=== PATIENT | male | born 1940 | race Caucasian/White ===

== ENCOUNTER 2018-10-07 10:17 | Inpatient (IN) | payer MEDICARE, BC ==
[~2018-10-07] VITALS: Ht 185.4 cm; Wt 128.8 kg
[~2018-10-07 10:17] MED LIST: ASPIR-LOW81 MG PO; COUMADIN 77.5 MG/TAB PO; WARFARIN SODIUM1 MG; ZOCOR; [UNRECOGNIZED DRUG - REMARK]
[2018-10-07] MEDS ORDERED: LIPITOR 40MG TA40 MG PO (10:42)
[2018-10-07] MEDS ORDERED: CARTIA XT120 MG PO (10:43)
[2018-10-07] MEDS ORDERED: SYNTHROID 0.0.025 MG PO (10:43)
[2018-10-07] MEDS ORDERED: 00186-0372-20 IH (10:44)
[2018-10-07] MEDS ORDERED: PRINIVIL10 MG PO (10:44)
[2018-10-07] MEDS ORDERED: LASIX 40MG TABL40 MG PO (10:45)
[2018-10-07 10:54] LABS: BASO # 0.1 (0.0-0.2); BASO % 0.5 % (0.0-2.0); EOS # 0.1 (0.0-0.7); EOS % 0.5 % (0-4.0); GRAN # 8.3 (1.4-6.5); GRAN % 75.4 % (42.2-75.2); HEMOGLOBIN 10.5 g/dl (13.5-18.0); LYMPH # 1.6 (1.2-3.4); LYMPH % 14.4 % (20.0-51.0); MEAN CELL VOLUME 104 fl (80.0-100.0); MEAN CORPUSCULAR HEMOGLOBIN 34 pg (27.0-31.0); MEAN CORPUSCULAR HGB CONC 33 g/dl (33.0-37.0); MEAN PLATELET VOLUME 11.3 fl (7.4-10.4); MONO # 0.9 (0.1-0.6); MONO % 8.3 % (1.7-9.3); PLATELET COUNT 121 K/mm3 (130-400); RED BLOOD COUNT 3.07 M/mm3 (4.20-5.60)
[2018-10-07 11:04] LABS: ALBUMIN 3.8 gm/dL (3.5-5.0); BILIRUBIN,TOTAL 1.4 mg/dL (0.0-1.0); CALCIUM 8.5 mg/dL (8.4-10.2); CREATININE, serum 0.95 mg/dL (0.66-1.25); POTASSIUM 5.2 mmol/L (3.4-5.0); TOTAL PROTEIN 7.1 gm/dL (6.4-8.2)
[2018-10-07 11:06] LABS: REDCELL DISTRIBUTION WIDTH-CV 20.9 % (11.5-14.5)
[2018-10-07 11:21] LABS: ARTERIAL BLD GAS O2 SATURATION 97.4 % (92-100); ARTERIAL BLD GAS TCO2 CT 25.3; ARTERIAL BLOOD GAS BASE EXCESS -0.4 (-2-2); ARTERIAL BLOOD GAS HCO3 24.1 meq/L (22-26); ARTERIAL BLOOD GAS PO2 120.5 mmHg (80-100); ARTERIAL BLOOD GAS pH 7.41 (7.35-7.45)
[2018-10-07 13:09] VITALS: BP 105/54; PULSE 84; TEMP 98.1
[2018-10-07] MEDS ORDERED: JANTOVEN7.5 MG PO (13:10)
[2018-10-07 13:47] LABS: INR 3.5 (0.8-3.0); PROTHROMBIN TIME 39.7 SECONDS (9.7-12.8)
[2018-10-07 19:32] LABS: PH 5 (5-8); SQUAMOUS EPITHELIAL 0-2 /hpf; URINE APPEARANCE Clear; URINE BACTERIA None Seen /hpf; URINE BILIRUBIN Negative (NEGATIVE); URINE BLOOD Negative (NEGATIVE); URINE COLOR Yellow; URINE GLUCOSE Negative (NEGATIVE); URINE KETONE Negative (NEGATIVE); URINE LEUKOCYTE ESTERASE Negative (NEGATIVE); URINE NITRATE Negative (NEGATIVE); URINE PROTEIN(semi-quant) Negative (NEGATIVE); URINE RBC None Seen /hpf; URINE UROBILINOGEN Negative (NEGATIVE)
[2018-10-07 19:47] VITALS: BP 100/50; PULSE 124; TEMP 97.7
[2018-10-07 19:48] LABS: COLLECTION METHOD CLEAN CATCH
[2018-10-08] VITALS (19 sets, daily range): BP systolic 98–132; BP diastolic 42–74; PULSE 50–128; TEMP 97.4–97.9; O2SAT 94–100
[2018-10-08 02:21] LABS: FOLATE (FOLIC ACID) 12.2 ng/mL (7.0-31.4)
[2018-10-08 05:54] LABS: BASO % 0.2 % (0.0-2.0); GRAN # 7.5 (1.4-6.5); LYMPH # 1.3 (1.2-3.4); LYMPH % 13.2 % (20.0-51.0); MEAN CELL VOLUME 104 fl (80.0-100.0); MEAN CORPUSCULAR HGB CONC 32 g/dl (33.0-37.0); MONO # 0.7 (0.1-0.6); PLATELET COUNT 105 K/mm3 (130-400); RED BLOOD COUNT 2.76 M/mm3 (4.20-5.60); REDCELL DISTRIBUTION WIDTH-CV 20.6 % (11.5-14.5)
[2018-10-08 05:56] LABS: HEMATOCRIT 28.6 % (42.0-52.0); HEMOGLOBIN 9.2 g/dl (13.5-18.0); MEAN CORPUSCULAR HEMOGLOBIN 33 pg (27.0-31.0)
[2018-10-08 06:06] LABS: INR 2.4 (0.8-3.0); PROTHROMBIN TIME 27.2 SECONDS (9.7-12.8)
[2018-10-08 06:15] LABS: ALBUMIN 3.5 gm/dL (3.5-5.0); BILIRUBIN,TOTAL 1.3 mg/dL (0.0-1.0); CALCIUM 8.1 mg/dL (8.4-10.2); CREATININE, serum 0.68 mg/dL (0.66-1.25); POTASSIUM 4.9 mmol/L (3.4-5.0); TOTAL PROTEIN 6.8 gm/dL (6.4-8.2)
[2018-10-08 19:00] LABS: CALCIUM 8.2 mg/dL (8.4-10.2); CREATININE, serum 0.76 mg/dL (0.66-1.25); POTASSIUM 4.9 mmol/L (3.4-5.0)
[2018-10-08 19:02] LABS: ARTERIAL BLD GAS O2 SATURATION 92.9 % (92-100); ARTERIAL BLD GAS TCO2 CT 23.3; ARTERIAL BLOOD GAS HCO3 22.2 meq/L (22-26); ARTERIAL BLOOD GAS PCO2 35.5 mmHg (35-45); ARTERIAL BLOOD GAS PO2 70.7 mmHg (80-100); ARTERIAL BLOOD GAS pH 7.41 (7.35-7.45)
[2018-10-08 19:17] LABS: TROPONIN-I 0.156 ng/mL (0.000-0.034)
[2018-10-09] VITALS (843 sets, daily range): BP systolic 99–114; BP diastolic 63–70; PULSE 79–105; TEMP 97.1–98.7; O2SAT 80–100
[2018-10-09 03:16] LABS: MEAN CELL VOLUME 104 fl (80.0-100.0); MEAN CORPUSCULAR HGB CONC 32 g/dl (33.0-37.0); PLATELET COUNT 111 K/mm3 (130-400); RED BLOOD COUNT 2.61 M/mm3 (4.20-5.60); REDCELL DISTRIBUTION WIDTH-CV 20.8 % (11.5-14.5)
[2018-10-09 03:29] LABS: HEMATOCRIT 27.2 % (42.0-52.0); HEMOGLOBIN 8.8 g/dl (13.5-18.0); MEAN CORPUSCULAR HEMOGLOBIN 34 pg (27.0-31.0)
[2018-10-09 03:31] LABS: INR 1.7 (0.8-3.0); PROTHROMBIN TIME 19.4 SECONDS (9.7-12.8)
[2018-10-09 03:43] LABS: TROPONIN-I 6 HR POST INITIAL 0.953 ng/mL (0.000-0.034)
[2018-10-09 03:49] LABS: BAND 3 % (0-10); LYMPHOCYTE 4 % (20.0-51.0); NEUTROPHILS 92 % (42.0-75.2)
[2018-10-09 03:50] LABS: HYPOCHROMIA 1+; PLATELET ESTIMATE DECREASED (NORMAL)
[2018-10-09 03:51] LABS: ANISOCYTOSIS 2+; SCHISTOCYTES 1+; SPHEROCYTE 1+; STOMATOCYTE 1+
[2018-10-09 04:02] LABS: CALCIUM 8.2 mg/dL (8.4-10.2); CREATININE, serum 0.78 mg/dL (0.66-1.25)
[2018-10-09 05:14] LABS: ARTERIAL BLOOD GAS BASE EXCESS 1.8 (-2-2); ARTERIAL BLOOD GAS HCO3 26.7 meq/L (22-26); ARTERIAL BLOOD GAS PCO2 43.1 mmHg (35-45); ARTERIAL BLOOD GAS pH 7.41 (7.35-7.45)
[2018-10-09 12:02] LABS: PARTIAL THROMBOPLASTIN TIME 29.8 SECONDS (26.0-37.0)
[2018-10-09 21:39] LABS: PARTIAL THROMBOPLASTIN TIME 37.5 SECONDS (26.0-37.0)
[2018-10-10] VITALS (1200 sets, daily range): BP systolic 98–115; BP diastolic 54–79; PULSE 91–111; TEMP 97.4–98.1; O2SAT 59–100
[2018-10-10 04:17] LABS: INR 1.6 (0.8-3.0); PROTHROMBIN TIME 17.8 SECONDS (9.7-12.8)
[2018-10-10 04:19] LABS: CALCIUM 8.7 mg/dL (8.4-10.2); CREATININE, serum 0.85 mg/dL (0.66-1.25); MAGNESIUM 2.2 mg/dL (1.6-2.3); POTASSIUM 4.7 mmol/L (3.4-5.0)
[2018-10-11] VITALS (1420 sets, daily range): BP systolic 107–120; BP diastolic 69–100; PULSE 96–119; TEMP 97.3–98.1; O2SAT 68–100
[2018-10-11 06:19] LABS: BASO % 0.1 % (0.0-2.0); GRAN # 11.1 (1.4-6.5); LYMPH # 0.7 (1.2-3.4); LYMPH % 5.4 % (20.0-51.0); MEAN CELL VOLUME 106 fl (80.0-100.0); MEAN CORPUSCULAR HGB CONC 32 g/dl (33.0-37.0); MEAN PLATELET VOLUME 11.3 fl (7.4-10.4); MONO # 0.7 (0.1-0.6); MONO % 5.5 % (1.7-9.3); PLATELET COUNT 138 K/mm3 (130-400); REDCELL DISTRIBUTION WIDTH-CV 20.7 % (11.5-14.5)
[2018-10-11 06:21] LABS: HEMATOCRIT 26.4 % (42.0-52.0); HEMOGLOBIN 8.5 g/dl (13.5-18.0); MEAN CORPUSCULAR HEMOGLOBIN 34 pg (27.0-31.0)
[2018-10-11 06:27] LABS: INR 1.4 (0.8-3.0); PROTHROMBIN TIME 16.2 SECONDS (9.7-12.8)
[2018-10-11 06:33] LABS: ALBUMIN 3.5 gm/dL (3.5-5.0); BILIRUBIN,TOTAL 1.5 mg/dL (0.0-1.0); CALCIUM 8.6 mg/dL (8.4-10.2); CREATININE, serum 0.84 mg/dL (0.66-1.25); POTASSIUM 4.7 mmol/L (3.4-5.0); TOTAL PROTEIN 6.6 gm/dL (6.4-8.2)
[2018-10-12] VITALS (1421 sets, daily range): BP systolic 99–119; BP diastolic 63–74; PULSE 87–120; TEMP 97.6–98.4; O2SAT 49–100
[2018-10-12 05:34] LABS: MEAN CELL VOLUME 105 fl (80.0-100.0); MEAN CORPUSCULAR HGB CONC 33 g/dl (33.0-37.0); MEAN PLATELET VOLUME 11.6 fl (7.4-10.4); PLATELET COUNT 135 K/mm3 (130-400); RED BLOOD COUNT 2.46 M/mm3 (4.20-5.60); REDCELL DISTRIBUTION WIDTH-CV 20.6 % (11.5-14.5)
[2018-10-12 05:36] LABS: HEMATOCRIT 25.7 % (42.0-52.0); HEMOGLOBIN 8.4 g/dl (13.5-18.0); MEAN CORPUSCULAR HEMOGLOBIN 34 pg (27.0-31.0)
[2018-10-12 05:46] LABS: CALCIUM 8.3 mg/dL (8.4-10.2); CREATININE, serum 0.85 mg/dL (0.66-1.25)
[2018-10-12 05:54] LABS: INR 1.3 (0.8-3.0); PROTHROMBIN TIME 15.3 SECONDS (9.7-12.8)
[2018-10-12 06:25] LABS: BAND 7 % (0-10); LYMPHOCYTE 13 % (20.0-51.0); NEUTROPHILS 74 % (42.0-75.2); NUCLEATED RED BLOOD CELL 3 (0-6)
[2018-10-12 06:26] LABS: ANISOCYTOSIS 2+; MICROCYTOSIS 2+
[2018-10-12 06:27] LABS: HYPOCHROMIA 2+; PLATELET ESTIMATE NORMAL (NORMAL)
[2018-10-13] VITALS (1321 sets, daily range): BP systolic 98–135; BP diastolic 62–90; PULSE 80–126; TEMP 97.4–98.6; O2SAT 49–100
[2018-10-13 05:28] LABS: MEAN CELL VOLUME 105 fl (80.0-100.0); MEAN CORPUSCULAR HGB CONC 32 g/dl (33.0-37.0); MEAN PLATELET VOLUME 11.6 fl (7.4-10.4); PLATELET COUNT 127 K/mm3 (130-400); RED BLOOD COUNT 2.53 M/mm3 (4.20-5.60); REDCELL DISTRIBUTION WIDTH-CV 20.7 % (11.5-14.5)
[2018-10-13 05:29] LABS: HEMATOCRIT 26.5 % (42.0-52.0); HEMOGLOBIN 8.5 g/dl (13.5-18.0); MEAN CORPUSCULAR HEMOGLOBIN 34 pg (27.0-31.0)
[2018-10-13 05:39] LABS: CALCIUM 8.1 mg/dL (8.4-10.2); CREATININE, serum 0.8 mg/dL (0.66-1.25); POTASSIUM 3.8 mmol/L (3.4-5.0)
[2018-10-13 05:56] LABS: INR 1.3 (0.8-3.0); PROTHROMBIN TIME 14.7 SECONDS (9.7-12.8)
[2018-10-13 06:48] LABS: LYMPHOCYTE 19 % (20.0-51.0); MYELOCYTE 2 % (0-0); NEUTROPHILS 67 % (42.0-75.2); NUCLEATED RED BLOOD CELL 4 (0-6)
[2018-10-13 06:49] LABS: ANISOCYTOSIS 2+; PLATELET ESTIMATE DECREASED (NORMAL); POLYCHROMASIA 2+
[2018-10-14] VITALS (1420 sets, daily range): BP systolic 101–118; BP diastolic 58–73; PULSE 88–122; TEMP 97.6–98; O2SAT 66–100
[2018-10-14 05:17] LABS: MEAN CELL VOLUME 105 fl (80.0-100.0); MEAN CORPUSCULAR HGB CONC 32 g/dl (33.0-37.0); MEAN PLATELET VOLUME 11.5 fl (7.4-10.4); PLATELET COUNT 109 K/mm3 (130-400); RED BLOOD COUNT 2.54 M/mm3 (4.20-5.60); REDCELL DISTRIBUTION WIDTH-CV 20.6 % (11.5-14.5)
[2018-10-14 05:50] LABS: HEMATOCRIT 26.7 % (42.0-52.0); HEMOGLOBIN 8.5 g/dl (13.5-18.0); MEAN CORPUSCULAR HEMOGLOBIN 33 pg (27.0-31.0)
[2018-10-14 05:54] LABS: CREATININE, serum 0.76 mg/dL (0.66-1.25); POTASSIUM 3.9 mmol/L (3.4-5.0)
[2018-10-14 06:26] LABS: BAND 1 % (0-10); LYMPHOCYTE 10 % (20.0-51.0); METAMYELOCYTE 1 % (0-0); NEUTROPHILS 81 % (42.0-75.2); NUCLEATED RED BLOOD CELL 2 (0-6); PLATELET ESTIMATE DECREASED (NORMAL)
[2018-10-14 06:31] LABS: ANISOCYTOSIS 2+; POLYCHROMASIA 2+
[2018-10-14 08:54] LABS: INR 1.3 (0.8-3.0); PROTHROMBIN TIME 14.4 SECONDS (9.7-12.8)
[2018-10-15] VITALS (561 sets, daily range): BP systolic 103–106; BP diastolic 65–74; PULSE 90–122; TEMP 97.5–98.4; O2SAT 72–100
[2018-10-15 05:56] LABS: MEAN CELL VOLUME 105 fl (80.0-100.0); MEAN CORPUSCULAR HGB CONC 32 g/dl (33.0-37.0); MEAN PLATELET VOLUME 11.8 fl (7.4-10.4); PLATELET COUNT 117 K/mm3 (130-400); RED BLOOD COUNT 2.72 M/mm3 (4.20-5.60); REDCELL DISTRIBUTION WIDTH-CV 20.7 % (11.5-14.5)
[2018-10-15 05:57] LABS: HEMATOCRIT 28.6 % (42.0-52.0); MEAN CORPUSCULAR HEMOGLOBIN 33 pg (27.0-31.0)
[2018-10-15 06:04] LABS: INR 1.4 (0.8-3.0); PROTHROMBIN TIME 15.6 SECONDS (9.7-12.8)
[2018-10-15 06:10] LABS: CALCIUM 8.3 mg/dL (8.4-10.2); CREATININE, serum 0.76 mg/dL (0.66-1.25); POTASSIUM 4.2 mmol/L (3.4-5.0)
[2018-10-15 06:28] LABS: BAND 7 % (0-10); EOSINOPHIL 1 % (0-4); LYMPHOCYTE 10 % (20.0-51.0); METAMYELOCYTE 2 % (0-0); NEUTROPHILS 70 % (42.0-75.2); NUCLEATED RED BLOOD CELL 1 (0-6); PLATELET ESTIMATE DECREASED (NORMAL)
[2018-10-15 06:29] LABS: ANISOCYTOSIS 2+
[2018-10-15 06:30] LABS: POLYCHROMASIA 1+; STOMATOCYTE 1+
== END 2018-10-15 12:45 | DRG 871 ==
LOC: COL.ER 10:17 → MEDICAL 11:46 → ICU 10-08 19:31
PROVIDERS: Family Medicine; Hospitalist; Internal Medicine; Internal Medicine Pulmonary Disease; Nurse Practitioner; Physician Assistant
PROC: B2111ZZ Fluoroscopy of Multiple Coronary Arteries using Low Osmolar Contrast (ICD-10-PCS; principal; 2018-10-13)
DX: A41.9 Sepsis, unspecified organism (principal); J18.1 Lobar pneumonia, unspecified organism; J96.21 Acute and chronic respiratory failure with hypoxia; I21.A1 Myocardial infarction type 2; Z66 Do not resuscitate; R04.2 Hemoptysis; I48.1 Persistent atrial fibrillation; J44.0 Chronic obstructive pulmonary disease with (acute) lower respiratory infection; I10 Essential (primary) hypertension; E78.5 Hyperlipidemia, unspecified; Z79.01 Long term (current) use of anticoagulants; Z87.891 Personal history of nicotine dependence; E87.5 Hyperkalemia; I25.10 Atherosclerotic heart disease of native coronary artery without angina pectoris; D69.6 Thrombocytopenia, unspecified; D64.9 Anemia, unspecified; J84.10 Pulmonary fibrosis, unspecified; G47.33 Obstructive sleep apnea (adult) (pediatric); I35.0 Nonrheumatic aortic (valve) stenosis; R73.9 Hyperglycemia, unspecified; T38.0X5A Adverse effect of glucocorticoids and synthetic analogues, initial encounter; Z95.5 Presence of coronary angioplasty implant and graft
CPT/HCPCS: 99223-AI; 99232-AI; 99233-AI; 99239; A4216; A9284; C1751; J0456; J0696; J1160; J1644; J1650; J1815; J1940; J2920; J7030; J7050; J7512; Q9967